=== PATIENT | male | born 1995 | race American Indian/Alaskan Native ===

== ENCOUNTER 2017-03-09 19:41 | Emergency (ER) | payer SELFPAY ==
[2017-03-09] MEDS ORDERED: DECADRON IM ONE (21:10)
--- NOTE | 2017-03-09 21:11 | Emergency Department Report ---
ED Rash HPI - HPI Chief Complaint: Skin Rash Stated Complaint: BODY RASH Time Seen by Provider: 03/09/17 21:01 Duration: 5 Days Location: Other (r thoracic; unilateral; pustules; hx chicken pox) Rash Symptoms: Yes Itching, Yes Blistering, No Facial Swelling, No Tongue/Oral Swelling, No Breathing Difficulties, No Choking Sensation, No Wheezing/Dyspnea, No Peeling, No Fever, No Lightheaded, No Malaise, No Myalgias Severity: mild ED Review of Systems ROS: Stated complaint: BODY RASH Other details as noted in HPI Comment: All other systems reviewed and negative Constitutional: no symptoms reported, see HPI Eyes: as per HPI ENT: as per HPI Respiratory: no symptoms reported Cardiovascular: as per HPI Endocrine: no symptoms reported, see HPI Gastrointestinal: as per HPI Genitourinary: as per HPI Musculoskeletal: as per HPI Skin: as per HPI, lesions Neurological: as per HPI Psychiatric: as per HPI Hematological/Lymphatic: as per HPI ED Past Medical Hx - Past Medical History Previous Medical History?: No Additional medical history: chicken pox - Surgical History Past Surgical History?: No - Social History Smoking Status: Never Smoker Substance Use Type: Alcohol - Medications Home Medications: Home Medications Medication Instructions Recorded Confirmed Last Taken Type Valacyclovir HCl [Valtrex] 1,000 mg PO BID #20 tab 03/09/17 Unknown Rx methylPREDNISolone [Medrol] 4 mg PO DAILY #1 tab.ds.pk 03/09/17 Unknown Rx Rash Exam - Exam General: Vital signs noted. No distress. Alert and acting appropriately. HEENT: No Periorbital Edema, No Conjuctival Injection, No Chemosis, No Perioral Edema, No Tongue Edema, No Uvular Edema, No Compromised Airway, No Drooling Lungs: Yes Good Air Exchange, No Wheezes, No Ronchi, No Stridor, No Cough, No Labored Respirations, No Retractions, No Use of Accessory Muscles, No Other Abnormal Lung Sounds Heart: Yes Regular, No Murmur Skin: Yes Weeping, Yes Erythema, Yes Edema, Yes Other (papule rash of r thoracic ; 1 w; yellow; no hx shingles; hx chicken pox; he is otherwise nonill appearing w no s/s of systemic disease; he is healthy appearing; athletic build ; nad; vss), No Urticarial Rash, No Maculopapular Rash, No Morbilliform rash, No Bulla(e), No Excoriations, No Tenderness, No Encrustations Other: Positive: Abdomen Normal, Neurologic Normal, Musculoskeletal Normal ED Course Vital Signs 03/09/17 19:49 Temperature 98 F Pulse Rate 59 L Respiratory 18 Rate Blood Pressure 131/82 O2 Sat by Pulse 99 Oximetry ED Medical Decision Making - Differential Diagnosis rash from allergy v shingles Critical care attestation.: If time is entered above; I have spent that time in minutes in the direct care of this critically ill patient, excluding procedure time. ED Disposition Clinical Impression: Shingles Disposition: DC-01 TO HOME OR SELFCARE Is pt being admited?: No Does the pt Need Aspirin: No Condition: Stable Instructions: Herpes Zoster (ED) Additional Instructions: keep area clean and dry follow up with pcp meds as ordered today Referrals: PRICE SMALL MD [Staff Physician] - 3-5 Days Time of Disposition: 21:11
[2017-03-09 21:38] VITALS: BP 116/67
== END 2017-03-09 21:37 | disposition home or self-care (01) ==
LOC: ED 19:41
DX: B02.9 Zoster without complications (principal)
CPT/HCPCS: 96372; 99282; J1100